=== PATIENT | male | born 1955 | race Caucasian/White ===

== ENCOUNTER 2023-09-16 09:21 | Emergency (ER) | payer MEDICARE, OTHER, SELFPAY ==
[2023-09-16 09:58] VITALS: BP 121/92
[2023-09-16 11:34] VITALS: BMI 27.9
[2023-09-16 11:45] VITALS: BP 147/100
--- NOTE | 2023-09-16 11:46 | ED.GENMED ---
History of Present Illness
General
Chief Complaint: Flank Pain
Source: patient and spouse
Exam Limitations: none
Time Seen by Provider: 09/16/23 11:31
Nursing documentation reviewed up to this point in time: agreed with
History of Present Illness
History of Present Illness:
67-year-old male presents ER for evaluation of right-sided back pain. He reports he had this for the past several weeks however this is got acutely worse over the past several days and worse this morning. He does feel that it is worse with
movement but he was unsure because he does have a history of kidney stones in the past. He had lithotripsy by Dr. Bowers. He complains of pain to the right low back with position change. He is comfortable at rest. He denies any urinary
frequency urgency. Denies any loss of bowel bladder denies hematuria. He has tried his tramadol at home without is not helping.
pt denies any recent injury to back, or does have chronic back pain is followed by Dr. Hood is in therapy twice a week. He denies any radiation to abdomen.
Past History
Past History
ED Past Medical History: Hypothyroidism and Other (MS)
Social History
Tobacco: Non-smoker
Personal:
Living: with family
Review of Systems
Review of Systems
Allergies reviewed?: Yes
Other source history: family
All Other Systems: ROS reviewed and negative except as documented in HPI and ROS
Constitutional: Reports no symptoms; Denies fever
Respiratory: Reports no symptoms
Cardiac: Reports no symptoms
ABD/GI: Reports no symptoms
: Denies dysuria, frequency, flank pain, incontinence or urgency
Musculoskeletal: Reports back pain (right sided low back pain )
Skin: Reports no symptoms
Neurological: Reports no symptoms
Psychiatric: Reports no symptoms
Phy Exam
General Physical Exam
General Presentation: no apparent distress
General age: appears stated age
General Skin: warm and dry
General Habitus: elderly
General Mental: alert
General Hydration: appears well hydrated
Gastrointestinal Exam
Gastrointestinal Exam: non tender and soft
Neurological Exam
Neurological Exam: alert and oriented x3
Musculoskeletal Exam
Musculoskeletal Exam: other (+ mildly tender to right lower back lower then flank region nml inspection)
Skin Exam
Skin Exam: normal color and warm/dry
Psychiatric Exam
Psychiatric Exam: normal mood/affect
Course
Orders/Labs/Results
Orders:
Orders
09/16/23 11:44
Complete Blood Count/With Diff Urgent
Comprehensive Metabolic Panel Urgent
Lipase Urgent
Urinalysis Reflex To Culture Urgent
Date Specimen was Collected: 09/16/23
Time Specimen was Collected: 11:36
Urine Microscopic Reflex Cult Urgent
Urine Culture Urgent
JAREN Source: U
Specimen Description:
Date Specimen was Collected: 09/16/23
Time Specimen was Collected: 11:36
09/16/23 11:55
CT Abd/pel Without Iv Or Oral Urgent
Comment:
Reason For Exam: right back pain
09/16/23 11:57
Acetaminophen [Tylenol] 1,000 mg PO NOW STA
diazePAM [Valium Injection] 2 mg IV NOW STA
Abnormal Lab Results
09/16/23
11:44
WBC 2.7 L 10^3/uL
(4.8-10.8)
RBC 4.54 L 10^6/uL
(4.70-6.10)
MCV 98.9 H fL
(80.0-94.0)
MCH 33.9 H pg
(27.0-31.0)
Absolute Lymphs (auto) 0.1 L 10^3/uL
(1.2-3.4)
Immature Gran % 0.7 H %
(0-0.5)
Neutrophils % 79.9 H %
(42.2-75.2)
Lymphocytes % 4.5 L %
(20.5-51.1)
Monocytes % 12.3 H %
(1.7-9.3)
Calcium 10.4 H mg/dl
(8.4-10.2)
Leukocyte Esterase Rfl 1+ A
(Negative)
Urine Bacteria (Reflex) Few A
(Negative)
09/16/23 11:44
09/16/23 11:44
Vital Signs
Initial and Last Documented VS:
Initial Vital Signs
Temp Pulse Resp BP Pulse Ox
97.7 F 103 18 121/92 97
09/16/23 09:58 09/16/23 09:58 09/16/23 09:58 09/16/23 09:58 09/16/23 09:58
Last Documented Vital Signs
Temp Pulse Resp BP Pulse Ox
97.7 F 103 18 136/93 95
09/16/23 09:58 09/16/23 09:58 09/16/23 09:58 09/16/23 12:00 09/16/23 12:30
MDM/Problems Addressed
Differential Diagnosis Includes:
Not limited to renal colic, muscular pain
MDM/Problems Addressed:
Symptoms are consistent muscular back pain. Patient was given Tylenol Valium here feeling much better. Pain is worse with movement however with history of kidney stone CAT scan was done which is negative for acute ureteral obstruction patient has
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 Will DC on Valium since patient had improvement of pain. He is in physical therapy for his back discussed close outpatient follow with family doctor and physical therapy .his wbc is low and
reports this is from his MS med. d/c w/ pt to f/u for this.
Patient has tramadol at home but this was not helping discussed with patient to stop tramadol and start taking Valium if needed since he had improvement of symptoms.
Chronic conditions affecting care:
History of renal colic, MS chronic back issues present physical therapy for this.
*Radiology
Radiology exam reviewed: radiology read reviewed
*Pulse Oximetry
Patient hypoxic: no
*Critical Care Note
Total Time (30-74mins, 75-104mins- exclusive of procedures): Not Applicable
Data Reviewed
Review of Other/Old Records Reveals: Other (Previous ER visit and imaging from 02/09 reviewed )
ED Attending Note
-
Portions of this chart may have been created with voice recognition software.� Occasional wrong word or��sound alike� substitutions may have occurred due to the inherent limitations of voice recognition software.
Discharge Plan
Departure
Patient Disposition: Home (Routine Discharge)
Date of Disposition: 09/16/23
Time of Disposition: 14:23
Patient with high blood pressure during this ER visit?: Yes
Condition: Fair
Covid-19: Not Applicable
Discharge Problem:
Back pain
Instructions: Back Pain, BLOOD PRESSURE
Prescriptions:
New
diazepam [Valium] 5 mg tablet
5 mg PO BID-TID PRN (Reason: muscle spasm) Qty: 10 0RF
No Action
levothyroxine 75 MCG tablet
1 tab PO DAILY
Patient Comments:
'When I remember to take it.'
dimethyl fumarate [Tecfidera] 240 MG capsule,delayed release(DR/EC)
240 mg PO BID
Multivitamin:
1 tab PO DAILY
Referrals:
Gaurav Haq DO [Family Provider] -
Activity Restrictions/Additional Instructions:
As discussed stop taking tramadol since this was not helping.
you may take Valium 5 mg every 8 hours only if needed since you had improvement with this medication here in the ER. Tylenol every 4-6 hours. Ice the affected area for the next 24 hours followed by warm moist heat. Follow-up with your family
doctor the next several days for reevaluation return if any worsening of symptoms. Also as discussed follow-up with your family doctor as your white blood count was low at 2.7.
Return if any worsening of symptoms.
You were given a copy of your CAT scan results to go over with your family doctor
Interventions
Interventions:
*Risk Screen - Suicide Last Done: 09/16/23 09:58
*General Assessment Last Done: 09/16/23 09:58
*Neglect/Abuse Screening Last Done: 09/16/23 09:58
ED- Fall Risk Assessment Last Done: 09/16/23 11:46
*ED COVID-19 Vaccine History Last Done: 09/16/23 09:58
HN-Mtdtmm-Etsbdphove Assessment Last Done: 09/16/23 11:46
ED-Male Genitourinary Assessment Last Done: 09/16/23 11:46
Discharge Date and Time
Print Language: TAJIK
[2023-09-16 12:00] VITALS: BP 136/93
[2023-09-16] MEDS: TYLENOL 1000 MG PO (12:01)
[2023-09-16] MEDS: VALIUM INJECTION 2 MG IV (12:02)
[2023-09-16 12:17] LABS: % Basophils 0.7 % (0-2); % Eosinophils 1.9 % (0-6); % Immature Granulocytes 0.7 % (0-0.5); % Lymphocytes 4.5 % (20.5-51.1); % Monocytes 12.3 % (1.7-9.3); % Neutrophils 79.9 % (42.2-75.2); Absolute Eosinophils 0.1 10^3/uL (0-0.7); Absolute Lymphocytes 0.1 10^3/uL (1.2-3.4); Absolute Monocytes 0.3 10^3/uL (0.1-0.6); Absolute Neutrophils 2.2 10^3/uL (1.4-6.5); Hematocrit 44.9 % (39.0-52.0); Hemoglobin 15.4 g/dL (13.0-18.0); Mean Corp Hgb Conc. 34.3 g/dL (33.0-37.0); Mean Corpuscular Hgb 33.9 pg (27.0-31.0); Mean Corpuscular Volume 98.9 fL (80.0-94.0); Mean Platelet Volume 8.3 fL (7.4-10.4); Nucleated Red Blood Cells % 0 % (-); Platelet Count 237 10^3/uL (130-400); Red Blood Cell Count 4.54 10^6/uL (4.70-6.10); Red Cell Dist. Width 14.5 % (11.5-14.5); White Blood Cell Count 2.7 10^3/uL (4.8-10.8)
[2023-09-16 12:20] LABS: Urine Albumin Negative (Neg - Trace); Urine Bilirubin Negative (Negative); Urine Character Clear (Clear); Urine Color Yellow; Urine Glucose Negative (Negative); Urine Ketone Negative (Negative); Urine Leukocyte 1+ (Negative); Urine Nitrite Negative (Negative); Urine Occult Blood Negative (Negative); Urine Urobilinogen Negative (Neg - 1+)
[2023-09-16 12:37] LABS: ALT (SGPT) 20 U/L (0-50); AST (SGOT) 26 U/L (17-59); Albumin 4.7 g/dl (3.5-5.0); Alkaline Phosphatase 73 U/L (38-126); Blood Urea Nitrogen 16 mg/dl (9-20); Calcium 10.4 mg/dl (8.4-10.2); Carbon Dioxide 30 mmol/L (22-30); Chloride 104 mmol/L (98-107); Estimated Creatinine Clearance 113 ml/min; Glucose 81 mg/dl (70-99); Lipase 133 U/L (23-300); Potassium 4.3 mmol/L (3.5-5.1); Sodium 138 mmol/L (135-145); Total Protein 7.2 g/dl (6.3-8.2); eGFR > 60.00
[2023-09-16 12:45] LABS: Urine Mucus Moderate
[2023-09-16 12:46] LABS: Urine Bacteria Few (Negative); Urine Red Blood Cell 0-2 /HPF (0-2); Urine Squamous Cell 0-2 /LPF (Few)
[2023-09-16 14:52] VITALS: BP 131/72
== END 2023-09-16 14:59 | disposition home or self-care (01) ==
LOC: EMR 09:21
PROVIDERS: Emergency Medicine; EMERGENCY PHYSICIAN Emergency Medicine; FAMILY PHYSICIAN Family Medicine
DX: M54.50 Low back pain, unspecified (principal); R03.0 Elevated blood-pressure reading, without diagnosis of hypertension
CPT/HCPCS: 99284; 96374; 74176; 80053; 81003; 81015; 83690; 85025; 87086

== ENCOUNTER → 2023-11-24 09:12 | Outpatient (REF) | payer MEDICARE, OTHER, SELFPAY | LOC: PAVMRI 09:12 | PROVIDERS: ATTENDING PHYSICIAN Electrodiagnostic Medicine; FAMILY PHYSICIAN Family Medicine | DX: G35 Multiple sclerosis (principal) | CPT/HCPCS: 70553; A9575 ==

== ENCOUNTER → 2023-11-27 07:20 | Outpatient (REF) | payer MEDICARE, OTHER, SELFPAY | LOC: PAVMRI 07:20 | PROVIDERS: ATTENDING PHYSICIAN Electrodiagnostic Medicine; FAMILY PHYSICIAN Family Medicine | DX: G35 Multiple sclerosis (principal) | CPT/HCPCS: 72156; A9575 ==

== ENCOUNTER → 2024-04-24 14:01 | Outpatient (REF) | payer MEDICARE, OTHER, SELFPAY | LOC: PAVMRI 14:01 | PROVIDERS: ATTENDING PHYSICIAN Specialist; FAMILY PHYSICIAN Family Medicine | DX: M25.512 Pain in left shoulder (principal) | CPT/HCPCS: 73221 ==

== ENCOUNTER → 2024-07-29 14:06 | Outpatient (REF) | payer MEDICARE, OTHER, SELFPAY | LOC: HWRAD 14:06 | PROVIDERS: ATTENDING PHYSICIAN Family Medicine | DX: N50.812 Left testicular pain (principal); R10.32 Left lower quadrant pain | CPT/HCPCS: 76870; 93976 ==

== ENCOUNTER → 2024-08-02 12:05 | Outpatient (REF) | payer MEDICARE, OTHER, SELFPAY | LOC: HWRAD 12:05 | PROVIDERS: ATTENDING PHYSICIAN Family Medicine | DX: N50.812 Left testicular pain (principal); R10.32 Left lower quadrant pain; R22.42 Localized swelling, mass and lump, left lower limb | CPT/HCPCS: 76882 ==

== ENCOUNTER → 2024-09-20 11:57 | Outpatient (REF) | payer MEDICARE, OTHER, SELFPAY | LOC: SDSPAT 11:57 | PROVIDERS: ATTENDING PHYSICIAN Surgery; FAMILY PHYSICIAN Family Medicine | DX: K40.20 Bilateral inguinal hernia, without obstruction or gangrene, not specified as recurrent (principal) | CPT/HCPCS: 36415; 93005 ==

== ENCOUNTER 2024-10-17 05:52 | Day surgery (SDC) | payer MEDICARE, OTHER, SELFPAY ==
[2024-09-20 14:22] VITALS: BMI 29.7
--- NOTE | 2024-10-10 10:53 | PTCARENOTE ---
Patients 09/15 WBC-2.7- [place] @ [facility] office notified
[2024-10-17] VITALS (8 sets, daily range): BP systolic 125–159; BP diastolic 85–98; BMI 29.7
[2024-10-17] MEDS: TYLENOL 1000 MG PO (06:29)
[2024-10-17] MEDS: NORMOSOL-R/PLASMALYTE-A 1000 IV (06:42)
--- NOTE | 2024-10-17 06:44 | W.SUR.PREOP ---
Pre-Operative Surgical Note
-
I have examined this patient prior to the performance of the scheduled procedure.
The patient's condition is unchanged from the time of the current History and
Physical and the patient is able to undergo the scheduled procedure.
--- NOTE | 2024-10-17 06:44 | HP.FOC2 ---
Focused History & Physical
Chief Complaint
HPI:
Chief Complaint: Bilateral inguinal hernias
HPI / Indication for Planned Procedure: This is a 69-year-old male who presents with bilateral inguinal hernias. Will perform a robotic bilateral inguinal hernia repair with mesh.
Relevant Past Medical History: Negative
Relevant Social History: Negative
Relevant Family History: Negative
Relevant Past Surgical History: Negative
Review of Systems
Review of Pertinent Systems: All Systems Negative
Medication
See Medication form for detailed medications: Yes
Medication List (including Herbals & OTC):
levothyroxine 75 mcg tablet 1 tab PO DAILY 12/22/11
amlodipine 5 mg tablet 5 mg PO DAILY 10/10/24
ascorbic acid (vitamin C) 1,000 mg tablet (Vitamin C) 1,000 mg PO DAILY 10/10/24
cholecalciferol (vitamin D3) 25 mcg (1,000 unit) capsule (Vitamin D3) 25 mcg PO DAILY 10/10/24
cladribine(multiple sclerosis) 10 mg tablet (Mavenclad (9 tablet pack)) 10 mg PO DIRECTED 10/10/24
cyanocobalamin (vitamin B-12) 1,000 mcg tablet (Vitamin B-12) 1,000 mcg PO DAILY 10/10/24
ibuprofen 200 mg tablet 400 mg PO Q6H PRN pain 10/10/24
sertraline 100 mg tablet 100 mg PO HS 10/10/24
tramadol 50 mg tablet 50 mg PO BID PRN pain 10/10/24
zinc 30 mg PO DAILY 10/10/24
Medications Reviewed: Yes
Allergies and Reactions
Patient has Allergies: No
Noted Allergies and Reactions:
Allergy/AdvReac Type Severity Reaction Status Date / Time
No Known Allergies Allergy Verified 10/17/24 06:19
Pertinent Physical Exam
All Other Systems: Negative
Head/Neck: Normal
Diagnosis / Assessment
This is a 69-year-old male who presents with bilateral inguinal hernias. Will perform a robotic bilateral inguinal hernia repair with mesh.
Plan / Procedure
This is a 69-year-old male who presents with bilateral inguinal hernias. Will perform a robotic bilateral inguinal hernia repair with mesh.
Anesthesia/Sedation to be done by Anesthesia Provider: Yes
--- NOTE | 2024-10-17 10:11 | W.IMMPOSTOP ---
Surgical Immed Post Op Note
-
Primary Surgeon: Thee Ingram MD
Assisting Surgeon: None
Pre-op Diagnosis: Bilateral inguinal hernias
Post-op Diagnosis: Bilateral inguinal hernias, right femoral hernia
Procedure Performed:
1. Robotic bilateral inguinal hernia repair with mesh (COLUMBA approach)
2. Robotic right femoral hernia repair with mesh
3. Bilateral excision of spermatic cord lipomas
Anesthesia Type: General
Specimen / Cultures: Bilateral cord lipomas
Estimated Blood Loss: 3 cc
Complications: None
Operative Findings: A Velázquez was placed preoperatively. The patient was noted to have bilateral inguinal hernias. On the right side the patient had a indirect, direct as well as femoral defect requiring an extra-large piece of Bard 3D max soft
uncoated polypropylene mesh to reinforce all 3 spaces. On the left the patient had a small indirect defect. A large 3D max mesh was used on this side. Both sides contained spermatic cord lipomas which were excised. Some bleeding noted with the
left upper quadrant port site but this resolved with simple pressure. The Velázquez was removed at the end of the case.
--- NOTE | 2024-10-17 10:14 | OR.RPT ---
Operative Report
Operative Report
Patient Name: Channing Redd
: 1955
Date of Operation: 10/17/2024
Preoperative Diagnosis: Bilateral inguinal hernias
Postoperative Diagnosis: Bilateral inguinal hernias, right femoral hernia
Procedure(s):
1. Robotic Inguinal Hernia Repair with mesh, bilateral (COLUMBA approach)
2. Robotic right femoral hernia repair with mesh
3. Excision of lesion of a spermatic cord lipoma ([id number])
Surgeon(s):
Dr. Ingram
Casino Surveillance Officer(s):
RAUL Samuels
Anesthesia: General
Estimated Blood Loss: 3 cc
Urine Output: None
Drains/Lines/Implants: Large LEFT 3D Max Bard mid weight uncoated polypropylene mesh, XL RIGHT.
Specimens: Bilateral cord lipomas
Indication for surgery: The patient has a history of groin pain and noted on exam to have bilateral inguinal Hernia(s). Following review of therapeutic options they have elected to undergo a minimally invasive repair.
Operative Findings: A Velázquez was placed preoperatively. The patient was noted to have bilateral inguinal hernias. On the right side the patient had a indirect, direct as well as femoral defect requiring an extra-large piece of Bard 3D max soft
uncoated polypropylene mesh to reinforce all 3 spaces. On the left the patient had a small indirect defect. A large 3D max mesh was used on this side. Both sides contained spermatic cord lipomas which were excised. Some bleeding noted with the
left upper quadrant port site but this resolved with simple pressure. The Velázquez was removed at the end of the case.
Details of the operation:
The patient was brought to the Operating Room and placed in the supine position with the arms tucked. IV antibiotics were infused and Venodyne stockings placed. Following uneventful induction of general endotracheal anesthesia, an orogastric tube
was placed as was a Velázquez. The abdomen was prepped and draped in the usual sterile fashion. The abdomen was entered using a Veress technique which required 1 pass(es), pneumoperitoneum to 15 mmHg was obtained without difficulty. An 8mm trochar was
passed through the abdominal wall roughly 20 cm cephalad to the inguinal canal. We then confirmed that no inadvertent injury was made while passing the trocar or Veress needle. We then placed two additional 8 mm ports in the left upper and right
upper quadrants. We then docked the robot with a Prograsper in the left hand port and monopolar scissors in the right. Bilateral inguinal hernias were noted. We began on the right side by creating a flap at the level of the ASIS laterally working
our way medially to the medial umbilical fold. Staying onto the peritoneum we were able to circumferentially dissect around the hernia sac and and peel it off of the underlying spermatic cord and testicular vessels, taking care to preserve them.
Medially we identified the midline pubis as well as Bj's ligament and ensured to dissect 2 cm below the pubic rim over the bladder. After exposure of the entire myopectineal orifice we identified and reduced: A small sized indirect inguinal
hernia, a small direct inguinal hernia (which was imbricated using an 2-0 V-Loc 180 suture), a moderate-sized femoral hernia containing bladder which was carefully reduced, and a medium cord lipoma, which was removed. We then performed the exact
same dissection on the contralateral/left side. After exposure of the entire myopectineal orifice we identified and reduced a small indirect inguinal hernia. There was no direct or femoral components on this side. We then reinforced our spaces
with a large left 3D max Bard soft uncoated polypropylene mid weight mesh on the left and used an extra-large sized mesh on the right. These were fixated medially at coopers and in the midline as well as superior laterally. The flaps were then
closed with running 2 oh barbed Monocryl suture with the tails cut flush with the medial fat pad so that no barbs were exposed. During closure of the flap an Angiocath was attempted to be inserted to help evacuate the flap but this was unsuccessful
due to body habitus so we evacuated the flap using a suction cannula which showed that the mesh is laid nicely and that there was no clamp shelling. 20 cc of quarter percent Marcaine was instilled at this time.
A few small rents in the peritoneum were noted and closed with 2-0 Vicryl sutures. All needles and instruments were then removed and the robot was undocked. The left upper quadrant port site was noted to be bleeding somewhat after port removal,
the this stopped with simple pressure. The abdomen was desufflated for a few minutes and then reinsufflated and hemostasis was reconfirmed. The abdomen was then desufflated, and pneumoperitoneum evacuated for a final time. All skin sites were
then closed with 4-0 Monocryl followed by Dermabond. Counts were correct and overall, the patient tolerated the procedure well and was taken to the Recovery Room postoperatively in stable condition.
I was the attending physician and performed the procedure with assistance of the PA above. The assistance of RAUL Samuels was required due to the complexity of the procedure. During the procedure Beckie assisted with port placement, instrument
and needle exchanges, and closure of the wound. I was present for all portions of the case, excluding skin closure.
Thee Ingram MD
[2024-10-17] MEDS: ROXICODONE 10 MG PO (11:42)
== END 2024-10-17 12:30 | disposition home or self-care (01) ==
LOC: SDS 05:52
PROVIDERS: ATTENDING PHYSICIAN Surgery; FAMILY PHYSICIAN Family Medicine
DX: K40.20 Bilateral inguinal hernia, without obstruction or gangrene, not specified as recurrent (principal); K41.90 Unilateral femoral hernia, without obstruction or gangrene, not specified as recurrent; D17.6 Benign lipomatous neoplasm of spermatic cord
CPT/HCPCS: 49650; 88304; C1781

== ENCOUNTER 2024-10-22 11:25 | Emergency (ER) | payer MEDICARE, OTHER, SELFPAY ==
[2024-10-22 11:26] VITALS: BP 149/94
--- NOTE | 2024-10-22 12:30 | ED.GENMED ---
History of Present Illness
General
Chief Complaint: Post Operative Problem(s)
Source: patient and family
Exam Limitations: none
Time Seen by Provider: 10/22/24 11:46
Nursing documentation reviewed up to this point in time: agreed with
History of Present Illness
History of Present Illness:
Pt with history of MS, s/p elective outpatient hernia repair 4 days ago, presents to ED secondary to inability to urinate since last night. Denies fever/chills. Denies nausea/vomiting. Pt did require temporary zacarias catheter during procedure but
opted to have it removed post procedure. For the past 24hrs, patient does report painful sensation when urinating. Pt does not have history of retention or UTI.
Past History
Past History
ED Past Medical History: Hypothyroidism and Other (MS)
Social History
Tobacco: Non-smoker
Personal:
Living: with family
Review of Systems
Review of Systems
Allergies reviewed?: Yes
All Other Systems: ROS reviewed and negative except as documented in HPI and ROS
Constitutional: Reports no symptoms
ABD/GI: Reports no symptoms
: Reports dysuria and difficulty voiding
Musculoskeletal: Reports no symptoms
Skin: Reports no symptoms
Neurological: Reports no symptoms
Phy Exam
Physical Exam
Physical Exam:
General: well appearing male, in acute distress. afebrile
Heent: nc/at. eomi
Abd: soft and nontender
Neuro:: aao x 3. no focal neurological deficit.
Ext: no edema.
Skin: warm to touch. no rash
Psych: pleasant and cooperative
Course
Orders/Labs/Results
Orders:
Orders
10/22/24 11:49
Zacarias [Zacarias Placement- Treatment] ONCE
Reason for insertion: Acute Retention
10/22/24 12:29
Urine Culture Urgent
JAREN Source: Urine
Specimen Description:
Obtained by: Indwelling Catheter
Date Specimen was Collected: 10/22/24
Time Specimen was Collected: 12:20
Comment: new cath
10/22/24 13:00
Phenazopyridine HCl [Pyridium] 200 mg PO NOW STA
10/22/24 13:01
Phenazopyridine HCl [Pyridium] 200 mg .ROUTE .STK-MED ONE
Vital Signs
Initial and Last Documented VS:
Initial Vital Signs
Temp Pulse Resp BP Pulse Ox
97.9 F 82 16 149/94 98
10/22/24 11:26 10/22/24 11:26 10/22/24 11:26 10/22/24 11:10/22/24 11:26
Last Documented Vital Signs
Temp Pulse Resp BP Pulse Ox
97.9 F 82 16 149/94 98
10/22/24 11:26 10/22/24 11:26 10/22/24 13:10 10/22/24 11:26 10/22/24 12:31
MDM/Problems Addressed
MDM/Problems Addressed:
Bladder scan: > 400ml urine
Zacarias catheter inserted with resolution of symptoms.
Urine cx pending
Pt will f/u with his urologist () upon discharge for re-evaluation, including outpatient void trial. Pt discharged home in stable condition to the care of his family
*Pulse Oximetry
SaO2: 98
Oxygen Mode of Delivery: Room air
Patient hypoxic: no
*Critical Care Note
Total Time (30-74mins, 75-104mins- exclusive of procedures): Not Applicable
ED Attending Note
-
Portions of this chart may have been created with voice recognition software.� Occasional wrong word or��sound alike� substitutions may have occurred due to the inherent limitations of voice recognition software.
Discharge Plan
Departure
Patient Disposition: Home (Routine Discharge)
Date of Disposition: 10/22/24
Time of Disposition: 12:31
Patient with high blood pressure during this ER visit?: Yes
Condition: Fair
Discharge Problem:
Acute urinary retention
Instructions: How to Care for Your Zacarias Catheter, Male, Urinary retention (DC)
Prescriptions:
No Action
levothyroxine 75 MCG tablet
1 tab PO DAILY
ascorbic acid (vitamin C) [Vitamin C] 1,000 mg Tablet
1,000 mg PO DAILY
sertraline 100 mg Tablet
100 mg PO HS
cyanocobalamin (vitamin B-12) [Vitamin B-12] 1,000 mcg Tablet
1,000 mcg PO DAILY
amlodipine 5 mg Tablet
5 mg PO DAILY
tramadol 50 mg Tablet
50 mg PO BID PRN (Reason: pain)
ibuprofen 200 mg Tablet
400 mg PO Q6H PRN (Reason: pain)
cholecalciferol (vitamin D3) [Vitamin D3] 25 mcg (1,000 unit) Capsule
25 mcg PO DAILY
Mavenclad (9 tablet pack) 10 mg tablet
10 mg PO DIRECTED
Patient Comments:
waiting to take 2nd dose- only 2 doses per lifetime
zinc 30 MG tablet
30 mg PO DAILY
acetaminophen 325 mg tablet
650 mg PO Q6HPRN PRN (Reason: mild pain) Qty: 14 0RF
Referrals:
Khai Bowers MD [Active, Urology]
Gaurav Haq DO [Family Provider, Family Practice]
Activity Restrictions/Additional Instructions:
As discussed, please follow-up with referred urologist for further evaluation and treatment. Please consider return to ED with worsening symptoms, i.e. fever/vomiting/malfunctioning catheter.
Interventions
Interventions:
*Risk Screen - Suicide Last Done: 10/22/24 11:26
*Neglect/Abuse Screening Last Done: 10/22/24 11:26
*ED- Fall Risk Assessment Last Done: 10/22/24 13:10
*Nursing Disposition Last Done: 10/22/24 13:10
ED-Skin Assessment Last Done: 10/22/24 12:08
Discharge Date and Time
Discharge Date/Time: 10/22/24 13:11
Print Language: PASHTO
== END 2024-10-22 13:11 | disposition home or self-care (01) ==
LOC: EMR 11:25
PROVIDERS: EMERGENCY PHYSICIAN Emergency Medicine; FAMILY PHYSICIAN Family Medicine
DX: R33.9 Retention of urine, unspecified (principal); G35 Multiple sclerosis; E03.9 Hypothyroidism, unspecified
CPT/HCPCS: 99282; 51702; 87086

== ENCOUNTER 2024-10-30 01:09 | Emergency (ER) | payer MEDICARE, OTHER, SELFPAY ==
[2024-10-30 01:13] VITALS: BP 131/89
--- NOTE | 2024-10-30 01:27 | ED.GENMED ---
History of Present Illness
General
Chief Complaint: Male Genito-Urinary Symptoms
Source: patient, records and previous hospital records
Exam Limitations: none
Time Seen by Provider: 10/30/24 01:24
Nursing documentation reviewed up to this point in time: agreed with
History of Present Illness
History of Present Illness:
69-year-old male trouble urinating, generally has a slow urinary stream, underwent double hernia surgery a week or so ago with Dr. Ingram, came in the ER with urinary retention treated with a catheter, followed up with urology tube was removed,
trouble urinating today, suprapubic pain, no fevers, has seen Dr. Bowers for this
Past History
Past History
ED Past Medical History: Hypothyroidism and Other (MS)
Social History
Tobacco: Non-smoker
Personal:
Living: with family
Review of Systems
Review of Systems
All Other Systems: Not applicable
Constitutional: Denies fever or fatigue
ABD/GI: Reports abdominal pain (Suprapubic pain)
: Reports difficulty voiding
Phy Exam
Physical Exam
Physical Exam:
Physical Exam
General: 69 male looks uncomfortable
Neck: No jaundice
Heart: Regular
Lungs: no acute respiratory distress.
Abdomen: Mild suprapubic
Neuro: alert and oriented. no focal neurological deficits
Skin: no rash
Psychiatric: well kept. interactive and cooperative
Extremities: no edema.
Course
Orders/Labs/Results
Orders:
Orders
10/30/24 01:27
Bladder Scan- Treatment ONCE
10/30/24 01:34
Velázquez Placement- Treatment ONCE
Reason for insertion: Acute Retention
Tamsulosin [Flomax] 0.4 mg PO NOW STA
10/30/24 01:35
Urinalysis Reflex To Culture Urgent
Vital Signs
Initial and Last Documented VS:
Initial Vital Signs
Temp Pulse Resp BP Pulse Ox
98.3 F 82 18 131/89 93
10/30/24 01:10/30/24 01:10/30/24 01:10/30/24 01:10/30/24 01:13
Last Documented Vital Signs
Temp Pulse Resp BP Pulse Ox
98.3 F 82 18 131/89 93
10/30/24 01:13 10/30/24 01:10/30/24 01:10/30/24 01:10/30/24 01:28
MDM/Problems Addressed
Differential Diagnosis Includes:
Retention UTI
MDM/Problems Addressed:
Urinary trouble
Chronic conditions affecting care:
Retention
Acute Exacerbation and/or Progression of Chronic Illness:
Retention
*Pulse Oximetry
SaO2: 93
Oxygen Mode of Delivery: Room air
Patient hypoxic: no
*Critical Care Note
Total Time (30-74mins, 75-104mins- exclusive of procedures): Not Applicable
Update Note
Update Note:
Bladder scan over 300 cc urine will ask RN to place Velázquez
ED Attending Note
-
Portions of this chart may have been created with voice recognition software.� Occasional wrong word or��sound alike� substitutions may have occurred due to the inherent limitations of voice recognition software.
Discharge Plan
Departure
Prescriptions:
No Action
levothyroxine 75 MCG tablet
1 tab PO DAILY
ascorbic acid (vitamin C) [Vitamin C] 1,000 mg Tablet
1,000 mg PO DAILY
sertraline 100 mg Tablet
100 mg PO HS
cyanocobalamin (vitamin B-12) [Vitamin B-12] 1,000 mcg Tablet
1,000 mcg PO DAILY
amlodipine 5 mg Tablet
5 mg PO DAILY
tramadol 50 mg Tablet
50 mg PO BID PRN (Reason: pain)
ibuprofen 200 mg Tablet
400 mg PO Q6H PRN (Reason: pain)
cholecalciferol (vitamin D3) [Vitamin D3] 25 mcg (1,000 unit) Capsule
25 mcg PO DAILY
Mavenclad (9 tablet pack) 10 mg tablet
10 mg PO DIRECTED
Patient Comments:
waiting to take 2nd dose- only 2 doses per lifetime
zinc 30 MG tablet
30 mg PO DAILY
acetaminophen 325 mg tablet
650 mg PO Q6HPRN PRN (Reason: mild pain) Qty: 14 0RF
Referrals:
Gaurav Haq, [Family Provider, Family Practice]
Interventions
Interventions:
*Risk Screen - Suicide Last Done: 10/30/24 01:13
Discharge Date and Time
Print Language: SWEDISH
[2024-10-30] MEDS: FLOMAX 0.4 MG PO (02:07)
[2024-10-30 02:15] VITALS: BP 129/85
[2024-10-30 02:29] LABS: Urine Character Slightly Cloudy (Clear)
[2024-10-30 02:41] LABS: Urine Red Blood Cell 40-50 /HPF (0-2); Urine White Cell 26-30 /HPF (0-5)
== END 2024-10-30 02:26 | disposition home or self-care (01) ==
LOC: EMR 01:09
PROVIDERS: EMERGENCY PHYSICIAN Emergency Medicine; FAMILY PHYSICIAN Family Medicine; REFERRING PHYSICIAN Specialist
DX: R33.9 Retention of urine, unspecified (principal); E03.9 Hypothyroidism, unspecified; G35 Multiple sclerosis
CPT/HCPCS: 99283; 51702; 81003; 81015; 87077; 87086